=== PATIENT | female | born 1945 | race Caucasian/White ===

== ENCOUNTER 2021-05-01 15:46 | Outpatient (CLI) | payer MEDICARE, SELFPAY ==
--- NOTE | ~2021-05-01 | MM_ITS ---
EXAMINATION: MM screening [facility] BI w [facility] HISTORY: Screening TECHNIQUE: Craniocaudal and mediolateral oblique 3-D tomosynthesis images were obtained and synthetic 2-D images were generated. CAD analysis was submitted and interpreted. COMPARISON: Comparison to multiple prior studies sequentially, with oldest reviewed study dated 06/27. BREAST PARENCHYMAL COMPOSITION: There are scattered areas of fibroglandular density. FINDINGS: There is no evidence of suspicious mass, calcification, or architectural distortion to sugg est malignancy in either breast. There has been no suspicious interval change. IMPRESSION: 1. No mammographic evidence of malignancy. 2. Recommend routine screening mammography in one year. BI-RADS Category 1: Negative Reviewed, dictated and finalized at location A.
== END 2021-05-01 15:47 | disposition home or self-care (01) ==
PROVIDERS: PCP Family Medicine Adolescent Medicine; Visit Provider Family Medicine Adolescent Medicine
DX: Z12.31 Encounter for screening mammogram for malignant neoplasm of breast (principal)
CPT/HCPCS: 77063; 77067

== ENCOUNTER 2021-08-19 13:38 | Emergency (ER) | payer MEDICARE, SELFPAY ==
--- NOTE | ~2021-08-19 | XR_ITS ---
EXAMINATION: XR shoulder RT min 2V DATE: 08/19/2021 14:52 INDICATION: Right shoulder pain. TECHNIQUE: 4 views of right shoulder were obtained. COMPARISON: None. FINDINGS: Bone alignment is normal. No fracture. There is moderate osteoarthritis of glenohumeral oneyda nt and mild osteoarthritis of acromioclavicular joint. IMPRESSION: 1. Polyarticular osteoarthritis. Reviewed, dictated and finalized at location B. [employer]
[2021-08-19 13:54] VITALS: BP 125/61; PULSE 82; RESP 16; TEMP 37.2; O2SAT 97
--- NOTE | 2021-08-19 14:14 | ED.UPPEXIN ---
HPI - Extremity Injury (Upper) General Chief Complaint: Extremity Injury, Upper Stated Complaint: right shoulder pain Time Seen by Provider: 08/19/21 14:22 Source: patient and RN notes reviewed Mode of arrival: ambulatory Limitations: no limitations History of Present Illness HPI narrative: 75-year-old female presents with concern for right shoulder pain after a fall. Reports this morning she accidentally rolled out of bed landing on the shoulder. Reports she also hit her head, but has since not had headache, nausea, vomiting. She reports little shoulder pain at rest, pain with range of motion and palpation. She denies bruising, redness, swelling, open skin. She denies intervention. MD complaint: injury to: right and shoulder Related Data Home Medications Medication Instructions Recorded Confirmed alprazolam 08/19/21 budesonide-formoterol [Symbicort] INHALATION 08/19/21 escitalopram oxalate mg 08/19/21 hydrocodone-acetaminophen 08/19/21 levothyroxine [Euthyrox] 08/19/21 08/19/21 montelukast mg 08/19/21 pantoprazole PO 08/19/21 Allergies Allergy/AdvReac Type Severity Reaction Status Date / Time Sulfa (Sulfonamide Allergy Mild RASH Verified 08/19/21 13:40 Antibiotics) Penicillins Allergy Unknown Rash Verified 08/19/21 13:40 Review of Systems Review of Systems: CONSTITUTIONAL: Denies malaise, chills, sweats, or fever. SKIN: Denies bruising, redness, swelling MUSCULOSKELETAL: Reports right shoulder pain NEUROLOGIC: Denies numbness, weakness All systems reviewed & are unremarkable except as noted in HPI and below PMFSH Comments At time of signature, agree with nursing past medical, surgical, social and family history. There is no relevant family history pertinent to the presenting complaint Exam Narrative: GENERAL: Well-appearing, well-nourished, and in no acute distress. HEAD: Normocephalic, atraumatic. EYES: PERRLA, conjunctivae clear NECK: Supple. CHEST: Speaks in full sentences. No respiratory distress. HEART: Regular rate and rhythm. Normal and equal peripheral pulses. EXTREMITIES: Right upper extremity has normal strength and sensation, grossly normal range of motion. No edema or ecchymosis. 5/5 strength with shoulder abduction, abduction, flexion and extension. Normal sensation with sensitivity to light touch and pain. Lateral joint tenderness. No open wounds, no skin tenting, no devitalized tissue or atrophy, no trophic changes, no obvious deformity, alignment normal, nearby joints and structures intact. Distal pulses palpable and equal bilaterally, skin warm, dry, pink. Capillary refill less than 3 seconds. SKIN: Warm, dry, no rash. NEURO: Alert and oriented x3. PSYCH: Normal mood and affect Course Course Emergency Course: Patient is aware of diagnosis, understands and agrees to treatment plan. Anticipatory guidance given. Patient agrees to follow-up as directed and is aware of reasons to seek care at the emergency department. Portions of this record may have been created with voice recognition software Vital Signs Vital signs: Vital Signs Temperature 98.9 F 08/19/21 13:54 Pulse Rate 82 08/19/21 13:54 Respiratory Rate 16 08/19/21 13:54 Blood Pressure 125/61 08/19/21 13:54 Pulse Oximetry 97 08/19/21 13:54 Temperature 98.9 F 08/19/21 13:54 Pulse Rate 82 08/19/21 13:54 Respiratory Rate 16 08/19/21 13:54 Blood Pressure 125/61 08/19/21 13:54 Pulse Oximetry 97 08/19/21 13:54 Reviewed. MDM - Extremity Injury (Upper) MDM Narrative Medical decision making narrative: Patients injury and pain is consistent with musculoskeletal etiology. No signs of neurological or vascular compromise on exam. Compartments and tissues are soft without signs of compartment syndrome. Pain is felt appropriate for further evaluation on an outpatient basis. Imaging Data My impression: Images reviewed, interpreted by radiologist, agree, see report. Radiologist's impression: EXAMINATION
== END 2021-08-19 15:10 | disposition home or self-care (01) ==
PROVIDERS: Emergency Provider Nurse Practitioner; PCP Family Medicine Adolescent Medicine
DX: S49.91XA Unspecified injury of right shoulder and upper arm, initial encounter (principal); Z79.891 Long term (current) use of opiate analgesic; W06.XXXA Fall from bed, initial encounter
CPT/HCPCS: 73030; 99213; A4565; G0463

== ENCOUNTER → 2022-03-17 13:41 | Outpatient (CLI) | payer MEDICARE, SELFPAY ==
--- NOTE | ~2022-03-17 | XR_ITS ---
XR lumbar spine 2-3V DATE: 03/17/2022 14:24 INDICATION: Worsening chronic low back pain TECHNIQUE: AP, lateral, coned lateral lumbosacral views COMPARISON: 07/2015 CT abdomen pelvis FINDINGS: There is osteopenia. There is mild levoscoliosis of the lumbar spine. There is mild degenerative disc disease of the lumbar spine. Degenerative change at the lower lumbar and lumbosacral apophyseal joints. No fracture or bone destruction is evident. The lumbar pedicles are intact. The sacroiliac joints are normal. Surgical clips, right upper quadrant, consistent with cholecystectomy. IMPRESSION: Osteopenia Mild levoscoliosis Mild multilevel degenerative disc disease, degenerative change at the lower lumbar and lumbosacral ap ophyseal joints Reviewed, dictated and finalized at location A. IMPRESSION: Osteopenia Mild levoscoliosis Mild multilevel degenerative disc disease, degenerative change at the lower lum bar and lumbosacral apophyseal joints
--- NOTE | ~2022-03-17 | XR_ITS ---
XR chest 2V DATE: 03/17/2022 14:24 INDICATION: Dyspnea on exertion TECHNIQUE: PA and lateral views COMPARISON: 10/31/2011 PA and lateral chest FINDINGS: Normal heart size. No hilar or mediastinal enlargement. No pulmonary infiltrate or consolid ation, pleural effusion or pulmonary vascular congestion or pneumothorax. Diffuse osteopenia. Status post cholecystectomy. IMPRESSION: No active cardiopulmonary disease Reviewed, dictated and finalized at location A.
== END ==
PROVIDERS: PCP Family Medicine Adolescent Medicine; Visit Provider Family Medicine Adolescent Medicine
DX: M54.50 Low back pain, unspecified (principal); R06.09 Other forms of dyspnea; M85.88 Other specified disorders of bone density and structure, other site; M41.86 Other forms of scoliosis, lumbar region; M51.36 Other intervertebral disc degeneration, lumbar region
CPT/HCPCS: 71046; 72100

== ENCOUNTER 2022-06-05 12:13 | Outpatient (CLI) | payer MEDICARE, SELFPAY ==
--- NOTE | ~2022-06-05 | MR_ITS ---
EXAMINATION: MR lumbar spine wo con DATE: 06/05/2022 12:52 INDICATION: Low back pain with lumbar radiculopathy. TECHNIQUE: Magnetic resonance imaging (MRI) of the lumbar spine was performed without intravenous con trast. Sequences included sagittal T2-weighted FSE, sagittal T2-weighted FS FSE, sagittal T1-weighted FSE, and axial T2-weighted FSE. COMPARISON: Lumbar spine radiographs dated 03/17/22 and MRI dated 12/13/2010 FINDINGS: 15 degrees lumbar levoscoliosis. 1-2 mm anterolisthesis L3 on L4 and L4 on L5. Vertebral body heights are normal. T1 hyperintense hemangiomas at T12, L3 and L4. No pathologic marrow replacing process. M ild to moderate right-sided predominant disc height loss at L3-L4. Mild right-sided predominant disc height loss at L2-L3 and L4-L5. There are annular fissures at L4-L5 and L5-S1. The conus medullaris t erminates at L1-L2. There is normal signal in the caudal spinal cord. Paravertebral soft tissues are unremarkable. There are few diverticula along the visualized descending colon. The following disc lev els are specifically discussed: T12-L1: Disc is mildly bulging. There is mild bilateral facet joint osteoarthritis. There is no neura l foraminal stenosis. There is no central canal stenosis. L1-L2: The disc does not extend beyond the endplate margin. There is mild bilateral facet joint osteo arthritis. There is no neural foraminal stenosis. There is no central canal stenosis. L2-L3: Disc is mildly bulging. There is mild right and moderate left facet joint osteoarthritis. Ther e is no neural foraminal stenosis. There is no central canal stenosis. L3-L4: Disc is bulging. There is hypertrophy of the ligamentum flavum. There is moderate left and se dionna right facet joint osteoarthritis. There is mild left and moderate right neural foraminal stenosi s. There is mild central canal stenosis. L4-L5: Disc is bulging. There is severe bilateral facet joint osteoarthritis. There is mild left and moderate right neural foraminal stenosis. There is mild central canal stenosis. L5-S1: Disc is mildly bulging. There is moderate right and severe left facet joint osteoarthritis. Th ere is old right and mild to moderate left neural foraminal stenosis. There is no central canal steno sis. IMPRESSION: 1. 15 degrees lumbar levoscoliosis with moderate spondylosis. Reviewed, dictated and finalized at location A.
== END 2022-06-05 12:14 | disposition home or self-care (01) ==
PROVIDERS: PCP Family Medicine Adolescent Medicine; Visit Provider Physician Assistant
DX: M47.26 Other spondylosis with radiculopathy, lumbar region (principal); M41.86 Other forms of scoliosis, lumbar region; M47.816 Spondylosis without myelopathy or radiculopathy, lumbar region
CPT/HCPCS: 72148

== ENCOUNTER → 2022-08-05 10:29 | Outpatient (CLI) | payer MEDICARE, SELFPAY ==
--- NOTE | ~2022-08-05 | XR_ITS ---
EXAMINATION: XR lumbar spine min 4V DATE: 08/05/2022 10:44 INDICATION: Back pain after fall TECHNIQUE: Anteroposterior and lateral in neutral, flexion and extension views of the lumbar spine, a nd cone-down lateral view of the lumbosacral junction were obtained. COMPARISON: 03/17/2022 FINDINGS: There are 11 degrees of lumbar levoscoliosis. There are 2 mm of anterolisthesis of L3 on L4 and 3 mm of anterolisthesis of L4 on L5. No laxity is present with flexion or extension. The vertebr al body heights are normal. No fracture is identified. There is mild loss of intervertebral disc spac e height at L3-4. There is mild loss of intervertebral disc space height at L2-3 and L4-5. Small dege nerative osteophytes project from the anterior endplates of multiple vertebral bodies. Surgical clips in the right upper quadrant are likely from prior cholecystectomy. There is moderate to severe facet joint osteoarthritis in the mid and lower lumbar spine. IMPRESSION: 1. Moderate lumbar spondylosis without acute findings or significant interval change. Reviewed, dictated and finalized at location B. AGENT IMPRESSION: 1. Moderate lumbar spondylosis without acute findings or significant interval c rylan.
== END ==
PROVIDERS: PCP Family Medicine Adolescent Medicine; Visit Provider Nurse Practitioner Family
DX: M47.26 Other spondylosis with radiculopathy, lumbar region (principal)
CPT/HCPCS: 72110

== ENCOUNTER → 2022-12-23 13:09 | Outpatient (CLI) | payer MEDICARE, SELFPAY ==
--- NOTE | ~2022-12-23 | XR_ITS ---
EXAMINATION: XR thoracic spine 3V DATE: 12/23/2022 13:30 INDICATION: Dorsalgia, unspecified TECHNIQUE: AP, lateral and lateral swimmer's views of the thoracic spine were obtained. COMPARISON: None FINDINGS: There is mild loss of intervertebral disc space height throughout the thoracic spine. The v ertebral body heights are maintained. There is no fracture. There is exaggerated kyphosis in the midt horacic spine. Small degenerative osteophytes project from the anterior endplates of multiple vertebr al bodies. Surgical clips in the right upper quadrant are likely from prior cholecystectomy. IMPRESSION: 1. Moderate thoracic spondylosis without acute findings. Reviewed, dictated and finalized at location F.
--- NOTE | ~2022-12-23 | XR_ITS ---
EXAMINATION:XR_CERV2-3V_CR DATE: 12/23/2022 13:30 INDICATION: Neck pain TECHNIQUE: AP, lateral, and odontoid views of the cervical spine are provided. COMPARISON: None FINDINGS: There are 2 mm of anterolisthesis of C3 on C4 and C4 on C5 and 3 mm of retrolisthesis of C5 on C6. The odontoid process is intact. No fracture is identified. There is severe loss of interverte bral disc space height at C5-C6 and moderate loss of intervertebral disc space height throughout the remainder of the cervical spine. Multilevel severe facet and uncovertebral joint osteoarthritis is pr esent. Prevertebral soft tissues are normal. IMPRESSION: 1. Severe cervical spondylosis without acute findings. Reviewed, dictated and finalized at location F.
== END ==
PROVIDERS: PCP Family Medicine Adolescent Medicine; Visit Provider Physician Assistant
DX: M54.9 Dorsalgia, unspecified (principal); M54.2 Cervicalgia; M43.04 Spondylolysis, thoracic region; M43.02 Spondylolysis, cervical region
CPT/HCPCS: 72040; 72072

== ENCOUNTER 2023-01-17 13:14 | Outpatient (CLI) | payer MEDICARE, SELFPAY ==
--- NOTE | ~2023-01-17 | XR_ITS ---
EXAMINATION: XR scoliosis survey DATE: 01/17/2023 13:41 INDICATION: Degenerative scoliosis. TECHNIQUE: Anteroposterior and lateral views of the entire spine standing were obtained. COMPARISON: Spine radiographs 12/23/2022 FINDINGS: Right femoral head stands 2 mm higher than the left. There are 12 pairs of ribs. There are 5 nonrib-bearing lumbar segments. There is 13 degrees dextroscoliosis from T9 to L2 by the Pham metho d. There is 18 degrees levoscoliosis from L2 to L5. There is severe cervical spondylosis and moderate thoracic and lumbar spondylosis. Surgical clips in the right upper quadrant are likely from cholecys tectomy. IMPRESSION: 1. Scoliosis. 2. Spondylosis, severe in cervical spine. Reviewed, dictated and finalized at location A.
== END 2023-01-17 13:15 | disposition home or self-care (01) ==
PROVIDERS: PCP Family Medicine Adolescent Medicine; Visit Provider Neurological Surgery
DX: M43.02 Spondylolysis, cervical region (principal); M41.50 Other secondary scoliosis, site unspecified
CPT/HCPCS: 72082

== ENCOUNTER 2025-03-14 13:36 | Outpatient (CLI) | payer MEDICARE, SELFPAY ==
--- NOTE | ~2025-03-14 | MM_ITS ---
EXAMINATION: MM screening [facility] HISTORY: Screening TECHNIQUE: Craniocaudal and mediolateral oblique 3-D tomosynthesis images were obtained and synthetic 2-D images were generated. CAD analysis was submitted and interpreted. COMPARISON: Comparison to multiple prior studies sequentially, with oldest reviewed study dated 08/27. BREAST PARENCHYMAL COMPOSITION: Not dense: There are scattered areas of fibroglandular density. FINDINGS: There is no evidence of suspicious mass, calcification, or architectural distortion to sugg est malignancy in either breast. There has been no suspicious interval change. IMPRESSION: 1. No mammographic evidence of malignancy. 2. Recommend routine screening mammography in one year. BI-RADS Category 1: Negative Reviewed, dictated and finalized at location A.
== END 2025-03-14 13:37 | disposition home or self-care (01) ==
PROVIDERS: PCP Family Medicine Adolescent Medicine; Visit Provider Family Medicine Adolescent Medicine
DX: Z12.31 Encounter for screening mammogram for malignant neoplasm of breast (principal)
CPT/HCPCS: 77063; 77067

== ENCOUNTER 2025-04-09 14:03 | Outpatient (CLI) | payer MEDICARE, SELFPAY ==
--- NOTE | ~2025-04-09 | DEXA_ITS ---
Bone Density Report Name: JULIETTE GERMAIN Age: 79 Sex: Female Ethnicity: White Date of : 1945 Indication: postmenopausal; screening for osteoporosis; asthma or emphysema; Referring Provider: RUBEN NIELSEN Study: Bone densitometry was performed. Exam Date: April 09, 2025 Accession number: [id number] Bone Density: Region BMD T-score Z-score Classification AP Spine(L1-L4) 0.767 -2.5 0.0 Osteoporosis Femoral Neck (Left) 0.461 -3.5 -1.3 Osteoporosis Total Hip (Left) 0.635 -2.5 -0.5 Osteoporosis Femoral Neck (Right) 0.491 -3.2 -1.0 Osteoporosis Total Hip (Right) 0.687 -2.1 -0.1 Osteopenia Total Hip Mean 0.661 -2.3 -0.3 Osteopenia World Health Organization criteria for BMD impression classify patients as: Normal (T-score at or above -1.0), Osteopenia (T-score between -1.0 and -2.5), or Osteoporosis (T-score at or below -2.5). 10-year Fracture Risk: FRAX not reported because: Some T-score for Spine Total or Hip Total or Femoral Neck at or below -2.5 Treated for osteoporosis Clinical Information Provided by Patient: Is being treated for osteoporosis Has used the following medications: Fosamax (i.e. alendronate), Prolia (i.e. denosumab) Has the following medical conditions: Asthma or Emphysema Patient maximum height was 60 Menopause Age: 51 No regular weight bearing exercise Drinks caffeinated beverages Onset of menses at age 14 Number of children 2 Missed period for more than 6 months in a row Impression: The patient has osteoporosis, based on the Left Femoral Neck T-score. Discussion: It is important to ask patients whether they are taking their medications and to encourage continued and appropriate compliance with their osteoporosis therapies to reduce fracture risk. It is also important to review their risk factors and encourage appropriate calcium and vitamin D intakes, exercise, fall prevention and other lifestyle measures. Follow-Up: Consider a repeat BMD and Vertebral Fracture Assessment (VFA) exam in 2 years or sooner if medically necessary, to reassess this patient's status. Reported by: JOSEPH on 04/09/2025 2:25:00 PM. Reviewed, dictated and finalized at location A.
== END 2025-04-09 14:04 | disposition home or self-care (01) ==
LOC: MICIMG 14:04
PROVIDERS: PCP Family Medicine Adolescent Medicine; Visit Provider Family Medicine Adolescent Medicine
DX: M81.0 Age-related osteoporosis without current pathological fracture (principal); M85.89 Other specified disorders of bone density and structure, multiple sites; Z78.0 Asymptomatic menopausal state
CPT/HCPCS: 77080